=== PATIENT | male | born 1985 | race African-American/Black ===

== ENCOUNTER 2016-09-19 19:27 | Emergency (ER) | payer OTHER ==
[~2016-09-19] VITALS: Ht 172.7 cm; Wt 60.0 kg
--- NOTE | 2016-09-19 19:51 | PD ---
HPI Chief Complaint: Psychiatric Symptoms Time Seen by Provider: 19:40 Travel History International Travel<30 days: No Contact w/Intl Traveler<30days: No Traveled to known affect area: No History of Present Illness HPI This is a 31-year-old male with history of PTSD, insomnia. He presents under [place] act initiated by the Police Department. According to his paperwork the patient told police he "wants to go batshit crazy" and he was deemed mentally not stable. [place] and [place] told police that he was having a bad day and was not taking his medications. The patient feels that his words were misunderstood by the police. He does admit to drinking some alcohol last night. Denies any drug use. He says that he is prescribed Abilify, buspar, zolpidem by psychiatrist Dr. Aguirre. He admits to feeling depressed. Denies any suicidal or homicidal ideation. Denies any hallucinations. Chart review reveals that the patient was Sprague acted here in September 12. He has no other complaints at this time. [facility], [facility] Past Medical History Narrative Medical History of insomnia, bipolar disorder Social History Alcohol Use: Yes (OCCASIONALLY) Tobacco Use: Yes Substance Use: No (Marijuanna use per pt. ) Allergies-Medications (Allergen,Severity, Reaction): Coded Allergies: Cat Dander (Verified Allergy, Unknown, 09/19/16) Per pt. Dog Dander (Verified Allergy, Unknown, 09/19/16) Per pt. Reported Meds & Prescriptions Reported Meds & Active Scripts Active Reported Doxepin (Doxepin HCl) 25 Mg Cap 25 Mg PO HS Buspirone (Buspirone HCl) 5 Mg Tab 5 Mg PO BID Ambien (Zolpidem Tartrate) 5 Mg Tab 5 Mg PO HS PRN Review of Systems Except as stated in HPI: all other systems reviewed are Neg Physical Exam Narrative GENERAL: Well-developed well-nourished male in no acute distress responding to commands appropriately SKIN: Warm and dry. HEAD: Atraumatic. Normocephalic. EYES: Pupils equal and round. No scleral icterus. No injection or drainage. ENT: No nasal bleeding or discharge. Mucous membranes pink and moist. NECK: Trachea midline. No JVD. CARDIOVASCULAR: Regular rate and rhythm. No murmur appreciated. RESPIRATORY: No accessory muscle use. Clear to auscultation. Breath sounds equal bilaterally. GASTROINTESTINAL: Abdomen soft, non-tender, nondistended. MUSCULOSKELETAL: No obvious deformities. NEUROLOGICAL: Awake and alert. No obvious cranial nerve deficits. Motor grossly within normal limits. Normal speech. PSYCHIATRIC: Mood is somewhat elevated; insight and judgment normal. Data Data Last Documented VS Vital Signs Date Time Temp Pulse Resp B/P Pulse Ox O2 Delivery O2 Flow Rate FiO2 09/19/16 19:54 98.5 75 16 150/96 98 Orders Complete Blood Count With Diff (09/19/16 19:46) Comprehensive Metabolic Panel (09/19/16 19:46) Drug Screen, Random Urine (09/19/16 19:46) Alcohol (Ethanol) (09/19/16 19:46) Psych Screen (09/19/16 19:46) Labs Laboratory Tests Test 09/19/16 19:50 White Blood Count 9.2 TH/MM3 Red Blood Count 5.51 MIL/MM3 Hemoglobin 16.4 GM/DL Hematocrit 46.8 % Mean Corpuscular Volume 84.9 FL Mean Corpuscular Hemoglobin 29.8 PG Mean Corpuscular Hemoglobin 35.0 % Concent Red Cell Distribution Width 13.9 % Platelet Count 239 TH/MM3 Mean Platelet Volume 8.0 FL Neutrophils (%) (Auto) 68.1 % Lymphocytes (%) (Auto) 16.3 % Monocytes (%) (Auto) 14.7 % Eosinophils (%) (Auto) 0.7 % Basophils (%) (Auto) 0.2 % Neutrophils # (Auto) 6.3 TH/MM3 Lymphocytes # (Auto) 1.5 TH/MM3 Monocytes # (Auto) 1.4 TH/MM3 Eosinophils # (Auto) 0.1 TH/MM3 Basophils # (Auto) 0.0 TH/MM3 CBC Comment DIFF FINAL Differential Comment Sodium Level 133 MEQ/L Potassium Level 4.4 MEQ/L Chloride Level 95 MEQ/L Carbon Dioxide Level 29.0 MEQ/L Anion Gap 9 MEQ/L Blood Urea Nitrogen 16 MG/DL Creatinine 1.10 MG/DL Estimat Glomerular Filtration 96 ML/MIN Rate Random Glucose 88 MG/DL Calcium Level 9.4 MG/DL Total Bilirubin 0.7 MG/DL Aspartate Amino Transf 80 U/L (AST/SGOT) Alanine Aminotransferase 58 U/L (ALT/SGPT) Alkaline Phosphatase 70 U/L Total Protein 8.5 GM/DL Albumin 4.4 GM/DL Urine Opiates Screen NEG Urine Barbiturates Screen NEG Urine Amphetamines Screen NEG Urine Benzodiazepines Screen NEG Urine Cocaine Screen NEG Urine Cannabinoids Screen POS Ethyl Alcohol Level LESS THAN 3 MG/DL MDM Medical Decision Making Medical Screen Exam Complete: Yes Emergency Medical Condition: Yes Medical Record Reviewed: Yes Interpretation(s) Drug screen positive for cannabinoids CBC unremarkable CMP AST 80, sodium 133, chloride 95 otherwise unremarkable Alcohol negative Differential Diagnosis Bipolar disorder, acute psychosis, substance induced mood disorder, schizophrenia, adjustment reaction, encephalitis Narrative Course 31-year-old male with history of insomnia, PTSD presents under Sprague act initiated by the police department for psychiatric evaluation. Mental health screening discussed with the patient. Psychiatric screen ordered. The patient's lab work is been reviewed. He is medically cleared for psychiatric disposition. Vidal Gottlieb Sep 19, 2016 19:51
[2016-09-19 19:54] VITALS: BP 150/96; PULSE 75; RESP 16; TEMP 98.5; O2SAT 98
[2016-09-19] MEDS ORDERED: DOXE25CA2 PO (20:02)
[2016-09-19] MEDS ORDERED: AMBI5TAB PO (20:02)
[2016-09-19] MEDS ORDERED: BUSP5TAB PO (20:02)
[2016-09-19 20:13] LABS: AUTOMATED NEUTROPHIL # 6.3 TH/MM3 (1.8-7.7); BASOPHIL % 0.2 % (0.0-2.0); EOSINOPHIL # 0.1 TH/MM3 (0-0.4); EOSINOPHIL % 0.7 % (0.0-4.0); HEMATOCRIT 46.8 % (39.0-51.0); HEMO FLAGS DIFF FINAL; LYMPH % 16.3 % (9.0-44.0); LYMPHOCYTE # 1.5 TH/MM3 (1.0-4.8); MEAN CELL VOLUME 84.9 FL (80.0-100.0); MEAN CORPUSCULAR HEMOGLOBIN 29.8 PG (27.0-34.0); MONO % 14.7 % (0.0-8.0); NEUT % 68.1 % (16.0-70.0); PLATELET COUNT 239 TH/MM3 (150-450); RED BLOOD COUNT 5.51 MIL/MM3 (4.50-5.90); RED CELL DISTRIBUTION WIDTH 13.9 % (11.6-17.2); WHITE BLOOD COUNT 9.2 TH/MM3 (4.0-11.0)
[2016-09-19 20:25] LABS: AMPHETAMINE, URINE NEG (NEG); BARBITURATES, URINE NEG (NEG); COCAINE, URINE NEG (NEG)
[2016-09-19 20:42] LABS: ANION GAP 9 MEQ/L (5-15)
[2016-09-19 20:46] LABS: ALKALINE PHOSPHATASE 70 U/L (45-117); ALT (GPT) 58 U/L (12-78); AST (GOT) 80 U/L (15-37); BLOOD UREA NITROGEN 16 MG/DL (7-18); CHLORIDE 95 MEQ/L (98-107); GLOMERULAR FILTRATION RATE 96 ML/MIN (>89); POTASSIUM 4.4 MEQ/L (3.5-5.1); SODIUM (NA) 133 MEQ/L (136-145); TOTAL BILIRUBIN ADULT 0.7 MG/DL (0.2-1.0)
[2016-09-19 22:37] VITALS: BP 128/82; PULSE 88; RESP 18; O2SAT 99
[2016-09-20] MEDS ORDERED: diphenhydrAMINE HCL 50 MG CAP PO ONE (01:45)
[2016-09-20 03:12] VITALS: BP 139/67; PULSE 88; RESP 18; TEMP 97.5; O2SAT 100
[2016-09-20 06:35] VITALS: BP 156/72; PULSE 69; RESP 18
[2016-09-20 10:39] VITALS: BP 135/66; PULSE 78; RESP 20; O2SAT 98
--- NOTE | 2016-09-20 10:45 | PD.CONS ---
Provisional Diagnosis Admission Date [place] I. Substance-induced mood disorder, cocaine, alcohol, marijuana use disorder, PTSD [place] II. Deferred [place] III. Denies History of Present Illness Service Psychiatry Consult Requested By Primary Care Physician No Primary Care Physician HPI The patient is a 31-year-old man, employed, domiciled with brother, single, , service connected, with a psychiatric history of PTSD, ADHD, no previous psychiatric hospitalizations, no previous suicidal attempts, cocaine and marijuana use disorder, previously Sprague acted due to substance related issues, no significant medical history, who presents under Sprague act initiated by the Police Department. According to his paperwork the patient told police [facility]" and he was deemed mentally not stable. [place] and friends told police that he was having a bad day and was not taking his medications. The patient feels that his words were misunderstood by the police. He does admit to drinking some alcohol, using marijuana and cocaine last night. Patient has been follow-up in the [facility], has been psychiatric to stay burning current psychotropic regimen. He says that he is prescribed Abilify, buspar, zolpidem by psychiatrist Dr. Aguirre. At the moment of evaluation the patient denies depression, denies anxiety, denies suicidal or homicidal ideation, denies jacobo , denies perceptual disturbances. Patient says that his behavior yesterday was related with being high and drunk, but at the same time he also said that the police did not understand his sarcasm. Patient reports daily use of marijuana, and occasional use of cocaine and alcohol. Collateral information from his brother was obtained, who confirmed patient's address, and agree with discharge. Review of Systems Constitutional: DENIES: Diaphoretic episodes, Fatigue, Fever, Weight gain, Weight loss, Chills, Dizziness, Change in appetite, Night Sweats Endocrine: DENIES: Heat/cold intolerance, Polydipsia, Polyuria, Polyphagia Eyes: DENIES: Blurred vision, Diplopia, Eye inflammation, Eye pain, Vision loss , Photosensitivity, Double Vision Ears, nose, mouth, throat: DENIES: Tinnitus, Hearing loss, Vertigo, Nasal discharge, Oral lesions, Throat pain, Hoarseness, Ear Pain, Running Nose, Epistaxis, Sinus Pain, Toothache, Odynophagia Respiratory: DENIES: Apneas, Cough, Snoring, Wheezing, Hemoptysis, Sputum production, Shortness of breath Cardiovascular: DENIES: Chest pain, Palpitations, Syncope, Dyspnea on Exertion , PND, Lower Extremity Edema, Orthopnea, Claudication Gastrointestinal: DENIES: Abdominal pain, Black stools, Bloody stools, Constipation, Diarrhea, Nausea, Vomiting, Difficulty Swallowing, Anorexia Genitourinary: DENIES: Sexual dysfunction, Urinary frequency, Urinary incontinence, Urgency, Hematuria, Dysuria, Nocturia, Penile Discharge, Testicular Pain, Testicular Swelling Musculoskeletal: DENIES: Joint pain, Muscle aches, Stiffness, Joint Swelling, Back pain, Neck pain Integumentary: DENIES: Abnormal pigmentation, Nail changes, Pruritus, Rash Hematologic/lymphatic: DENIES: Bruising, Lymphadenopathy Immunologic/allergic: DENIES: Eczema, Urticaria Neurologic: DENIES: Abnormal gait, Headache, Localized weakness, Paresthesias, Seizures, Speech Problems, Tremor, Poor Balance Psychiatric: DENIES: Anxiety, Confusion, Mood changes, Depression, Hallucinations, Agitation, Suicidal Ideation, Homicidal Ideation, Delusions Past Family Social History Coded Allergies: Cat Dander (Verified Allergy, Unknown, 09/19/16) Per pt. Dog Dander (Verified Allergy, Unknown, 09/19/16) Per pt. Reported Medications Doxepin 25 Mg Cap25 Mg PO HS #30 CAP Ref 0 09/19/16 Buspirone 5 Mg Tab5 Mg PO BID Ref 0 09/19/16 Zolpidem (Ambien)5 Mg Tab5 Mg PO HS PRN (INSOMNIA) Ref 0 09/19/16 Family History He denies Social History Patient was born and raised in [place], he has been living with his brother for 4 years in [place], he is employed in construction, He is a [place]. Physical Exam Vital Signs Vital Signs Date Time Temp Pulse Resp B/P Pulse Ox O2 Delivery O2 Flow Rate FiO2 09/20/16 06:35 69 18 156/72 09/20/16 03:12 97.5 100 Room Air Mental Status Examination Appearance man, age appearing, good hygiene, calm and cooperative Speech: Unremarkable Orientation: x3 Memory: Unremarkable Thought Process: Logical Thought Content: Unremarkable Hallucination Type: None Suicidal Ideation: No Previous Suicide Attempts: No Homicidal Ideation: No Previous Homicide Attempts: No Insight: Good Affect: Good Mood: Appropriate Motor Activity: Normal gait Assessment & Plan Problem List: (1) Substance induced mood disorder Assessment & Plan: The patient is a 31-year-old man, employed, domiciled with brother, single, , service connected, with a psychiatric history of PTSD, ADHD, no previous psychiatric hospitalizations, no previous suicidal attempts, cocaine and marijuana use disorder, previously Sprague acted due to substance related issues, no significant medical history, who presents under Sprague act initiated by the Police Department. On psychiatric evaluation today the patient does not present any concerning, significant or acute psychiatric symptoms that require an immediate psychiatric intervention or psychiatric hospitalization, patient denies suicidal or homicidal ideation, she denies visual and auditory hallucinations, on longitudinal observation patient has not showed any behavioral or mood dysregulation. He does not meet criteria for psychiatric hospitalization at this moment. Patient can continue his psychiatric care as an outpatient in [place] [facility] with Dr. Aguirre. Is highly probable that [place] to drug intoxication and no to a primary psychiatric condition. Sprague act will be lifted. Support, motivation psychoeducation provided. ICD Code: F19.94 Assessment & Plan Estimated LOS: days Casey Rocha MD Sep 20, 2016 10:45
[2016-09-20 10:50] VITALS: BP 138/66; PULSE 78; RESP 18; O2SAT 98
== END 2016-09-20 14:06 | disposition home or self-care (01) ==
LOC: NEPE 19:27 → NEPJ 09-20 14:06
DX: F19.94 Other psychoactive substance use, unspecified with psychoactive substance-induced mood disorder (principal); F14.90 Cocaine use, unspecified, uncomplicated; F12.90 Cannabis use, unspecified, uncomplicated; F43.10 Post-traumatic stress disorder, unspecified; G47.00 Insomnia, unspecified; F31.9 Bipolar disorder, unspecified
CPT/HCPCS: 80053; 80307; 80320; 85025; 99283; Q0163